=== PATIENT | male | born 1975 | race African-American/Black ===

== ENCOUNTER 2021-11-12 20:33 | Emergency (ER) | payer MEDICAID, OTHER ==
[~2021-11-12] VITALS: Ht 180.3 cm; Wt 75.0 kg
[~2021-11-12 20:33] MED LIST: HYDR12.529
[2021-11-12 20:35] VITALS: BP 140/94
[2021-11-12] MEDS ORDERED: NALO4SPR BOTHNSTRLS (21:09)
== END 2021-11-12 23:22 | disposition left against medical advice (07) ==
LOC: ER 20:33
DX: T40.601A Poisoning by unspecified narcotics, accidental (unintentional), initial encounter (principal); I10 Essential (primary) hypertension; Y92.488 Other paved roadways as the place of occurrence of the external cause
CPT/HCPCS: 99283